=== PATIENT | male | born 2000 ===

== ENCOUNTER 2025-05-12 13:24 | Emergency (ER) | payer OTHER ==
[~2025-05-12] VITALS: Ht 193 cm; Wt 88.5 kg
[2025-05-12 13:46] VITALS: BP 149/80; O2SAT 100
[2025-05-12] MEDS ORDERED: GUAIFENESIN/DEXTROMETHORPHAN 100MG/10ML BLIST.PACK PO STA (14:33)
[2025-05-12] MEDS ORDERED: CETIRIZINE HCL 5 MG/5 ML ML PO STA (14:34)
[2025-05-12] MEDS ORDERED: DEXAMETHASONE SODIUM PHOSPHATE 4 MG/ML VIAL IM STA (14:35)
[2025-05-12] MEDS ORDERED: 0.9 % SODIUM CHLORIDE 500 ML IV ONE (14:45)
[2025-05-12 15:36] LABS: BASO % 0.3 % (0.1-1.2); EOS # 0.10 (0.04-0.54); EOS % 1.4 % (0.7-7.0); LYMPH # 1.84 (1.18-3.74); LYMPH % 26.5 % (19.3-53.1); MEAN PLATELET VOLUME 10.10 fl (9.4-12.4); MONO # 0.51 (0.24-0.82); MONO % 7.3 % (4.7-12.5); NEUT # 4.46 (1.56-6.13); NEUT % 64.2 % (34.0-71.1); RED CELL DISTRIBUTION WIDTH 11.9 % (11.6-14.4)
[2025-05-12 15:59] LABS: COVID-19 AG NEGATIVE (NEGATIVE)
[2025-05-12 16:36] LABS: ALT/SGPT 23.0 U/L (12-78); AST/SGOT 13.0 U/L (15-37); BILIRUBIN TOTAL 0.65 mg/dL (0.3-1.2); BUN CREA RATIO 20.0 (7.0-25.0); CREATININE SERUM 1.1 mg/dL (0.70-1.30); GFR 81.56; GLOBULINA 3.3 G/DL (2.4-3.5); GLUCOSE FASTING 94.0 mg/dL (65-100); OSMOLALITY SERUM 286.0 MOSM/KG (275-295)
[2025-05-12] MEDS ORDERED: ZYRTEC10 MG PO (16:49)
[2025-05-12] MEDS ORDERED: NASONEX 24HR AL17 ML NASAL (16:49)
== END 2025-05-12 17:20 | disposition home or self-care (01) ==
LOC: ER 14:49
PROVIDERS: General Practice
DX: J30.9 Allergic rhinitis, unspecified (principal); Z20.822 Contact with and (suspected) exposure to COVID-19
CPT/HCPCS: 36415; 70210; 96365; 96366; 96372; 99283; J1100; J7042